=== PATIENT | male | born 1960 | race African-American/Black ===

== ENCOUNTER 2020-11-29 08:17 | Inpatient (IN) | payer SELFPAY ==
[2020-11-29] MEDS ORDERED: Lorazepam 2 MG/ML VIAL ONE (08:48)
[2020-11-29] MEDS ORDERED: Octreotide Acetate 50 MCG/ML AMP ONE (08:57)
[2020-11-29 09:10] LABS: #Basophils 0.1 thou/uL (0.0-0.2); #Lymphocytes 2.1 thou/uL (1.20-3.40); #Monocytes 0.5 thou/uL (0.11-0.59); #Neutrophils 5.1 thou/uL (1.40-6.50); %Basophils 0.7 % (0.0-1.0); %Eosinophils 0.2 % (0.0-10.0); %Lymphocytes 26.7 % (21.0-51.0); %Monocytes 6.6 % (0.0-10.0); %Neutrophils 65.8 % (42.0-75.0); Hemoglobin 10.3 g/dL (14.0-18.0); Mean Corpuscular HGB CONC 33.4 g/dL (32.0-36.0); Mean Corpuscular Hemoglobin 33.2 pg (27.0-31.0); Mean Corpuscular Volume 99.4 fL (78.0-98.0); Mean Platelet Volume 7.5 fL (7.4-10.4); Platelet Count 176 thou/uL (130-400); RBC Distribution Width 12.8 % (11.5-14.5); Red Blood Cell (RBC) Count 3.11 mill/uL (4.70-6.10); White Blood Cell (WBC) Count 7.7 thou/uL (4.8-10.8)
[2020-11-29] MEDS ORDERED: Octreotide Acetate 1,250 MCG in Sodium Chloride 0.9% 250 ML 250 ML IVPB SCH (09:15)
[2020-11-29 09:18] LABS: INR-International Normal Ratio 1.3
[2020-11-29 09:31] LABS: ALT (SGPT) 27 U/L (8-55); AST (SGOT) 85 U/L (5-34); Albumin 2.8 g/dL (3.5-5.0); Alkaline Phosphatase 90 U/L (40-110); Anion Gap 22 mmol/L (10-20); BUN (Urea Nitrogen) 5 mg/dL (8.4-25.7); Bilirubin, Total 0.5 mg/dL (0.2-1.2); Calc. Creatinine Clearance 0 mL/min (70-130); Calcium 7.9 mg/dL (7.8-10.44); Carbon Dioxide 12 mmol/L (22-29); Chloride 106 mmol/L (98-107); Globulin 3.1 g/dL (2.4-3.5); Glucose 196 mg/dL (70-105); Potassium 3.9 mmol/L (3.5-5.1); Protein, Total 5.9 g/dL (6.0-8.3); Sodium 136 mmol/L (136-145)
[2020-11-29] MEDS ORDERED: Pantoprazole 40 MG VIAL ONE (09:32)
[2020-11-29] MEDS ORDERED: Pantoprazole 80 MG, Admixture Fee 1 EACH in Sodium Chloride 0.9% 100 ML IVPB SCH (10:00)
[2020-11-29] MEDS ORDERED: Iopamidol-370 76% 500 ML 1 ML ONE (11:40)
[2020-11-29 11:58] LABS: Acetaminophen Less than 6.0 mcg/mL (10.0-30.0); Alcohol Less than 10 mg/dL (Less than 10); Salicylate Less than 8.0 mg/dL (15.0-30.0)
[2020-11-29] MEDS ORDERED: PROPOFOL 200 MG/20 ML VIAL ONE (12:16)
[2020-11-29] MEDS ORDERED: Succinylcholine 200 MG/10 ml SYRINGE FS ONE (12:16)
[2020-11-29] MEDS ORDERED: Ondansetron PF 4 MG/2 ML Vial ONE (12:16)
[2020-11-29] MEDS ORDERED: Dexamethasone 20 MG/5 ML VIAL ONE (12:16)
[2020-11-29] MEDS ORDERED: Lidocaine 1% PF 5 ML VIAL ONE (12:16)
[2020-11-29 12:17] LABS: SARS-CoV-2 NAA Rapid Test Not Detected (NotDetected)
[2020-11-29] MEDS ORDERED: EPINEPHrine 1 MG/ML AMP ONE (12:58)
[2020-11-29] MEDS ORDERED: Racepinephrine 2.25% 0.5 ML NEB ONE (12:58)
[2020-11-29] MEDS ORDERED: Sodium Chloride For Inhalation 0.9% 3 ML NEB ONE (12:59)
[2020-11-29] MEDS ORDERED: Promethazine HCl 25 MG/ML VIAL IM PRN (13:07)
[2020-11-29] MEDS ORDERED: Ondansetron HCl/PF 4 MG/2 ML Vial IVP PRN (13:07)
[2020-11-29] MEDS ORDERED: Promethazine HCl 25 MG/ML VIAL IVPB PRN (13:07)
[2020-11-29 14:59] LABS: Hemoglobin 9.5 g/dL (14.0-18.0)
[2020-11-29 15:31] LABS: ALT (SGPT) 27 U/L (8-55); AST (SGOT) 69 U/L (5-34); Albumin 2.8 g/dL (3.5-5.0); Alkaline Phosphatase 92 U/L (40-110); Anion Gap 17 mmol/L (10-20); BUN (Urea Nitrogen) 5 mg/dL (8.4-25.7); Bilirubin, Total 0.7 mg/dL (0.2-1.2); Calc. Creatinine Clearance 0 mL/min (70-130); Calcium 7.9 mg/dL (7.8-10.44); Carbon Dioxide 18 mmol/L (22-29); Chloride 102 mmol/L (98-107); Globulin 3.2 g/dL (2.4-3.5); Glucose 339 mg/dL (70-105); Potassium 4.6 mmol/L (3.5-5.1); Sodium 132 mmol/L (136-145)
[2020-11-29 15:45] LABS: Lactic Acid 5.4 mmol/L (0.5-2.2)
[2020-11-29 16:05] VITALS: BMI 21.2
[2020-11-29] MEDS ORDERED: GoLYTELY 4,000 ml Bottle PO SCH (17:00)
[2020-11-29] MEDS: Sodium Chloride 0.9% 1,000 ML IV SCH (17:36)
[2020-11-29] MEDS: Multivitamins, Adult 10 ML, Folic Acid 1 MG, Thiamine HCl 100 MG in Dextrose 5 %-0.45 %... IV SCH (17:36)
[2020-11-29] MEDS ORDERED: Diazepam 5 MG TAB PO PRN (19:02)
[2020-11-29] MEDS ORDERED: Thiamine HCl 200 MG/2 ML VIAL IM SCH (19:15)
[2020-11-29] MEDS ORDERED: Diazepam 5 MG TAB PO SCH (19:15)
[2020-11-29 19:59] LABS: Hemoglobin 8.7 g/dL (14.0-18.0)
[2020-11-29 20:19] LABS: Lactic Acid 4.5 mmol/L (0.5-2.2)
[2020-11-29] MEDS ORDERED: Sodium Chloride 0.9% 500 ML IV SCH (21:00)
[2020-11-29] MEDS: Pantoprazole 40 MG VIAL IVP SCH (21:34)
[2020-11-29 21:49] LABS: Amphetamine Not Detected (NotDetected); Barbiturates Screen Not Detected (NotDetected); Benzodiazepine Screen Detected (NotDetected); Cocaine Metabolite Screen Not Detected (NotDetected); Methadone Not Detected (NotDetected); Methamphetamine Not Detected (NotDetected); Opiate Screen Not Detected (NotDetected); Oxycodone Screen Not Detected (NotDetected); Phencyclidine (PCP) Not Detected (NotDetected); THC/Cannabinoid Screen Detected (NotDetected); Tricyclic Screen Not Detected (NotDetected)
[2020-11-30] MEDS: Sodium Chloride 0.9% 1,000 ML IV SCH ×2 (03:53→15:18)
[2020-11-30] MEDS ORDERED: Diazepam 5 MG TAB PO PRN (04:00)
[2020-11-30 07:16] LABS: #Lymphocytes 2.5 thou/uL (1.20-3.40); #Monocytes 1.1 thou/uL (0.11-0.59); #Neutrophils 9.5 thou/uL (1.40-6.50); %Basophils 0.1 % (0.0-1.0); %Eosinophils 0.1 % (0.0-10.0); %Lymphocytes 18.7 % (21.0-51.0); %Monocytes 8.5 % (0.0-10.0); %Neutrophils 72.5 % (42.0-75.0); Hemoglobin 8.4 g/dL (14.0-18.0); Magnesium 2.1 mg/dL (1.6-2.6); Mean Corpuscular HGB CONC 32.9 g/dL (32.0-36.0); Mean Corpuscular Hemoglobin 32.9 pg (27.0-31.0); Mean Corpuscular Volume 99.9 fL (78.0-98.0); Mean Platelet Volume 8.1 fL (7.4-10.4); Phosphorus 2.7 mg/dL (2.3-4.7); Platelet Count 162 thou/uL (130-400); RBC Distribution Width 12.9 % (11.5-14.5); Red Blood Cell (RBC) Count 2.55 mill/uL (4.70-6.10); White Blood Cell (WBC) Count 13.1 thou/uL (4.8-10.8)
[2020-11-30] MEDS: Multivitamin W/ Minerals 1 TAB PO SCH (09:01)
[2020-11-30] MEDS: Magnesium Oxide 400 MG TAB PO SCH (09:01)
[2020-11-30] MEDS: Pantoprazole 40 MG VIAL IVP SCH ×2 (09:01→21:27)
[2020-11-30] MEDS: Thiamine 100 MG TAB PO SCH (09:01)
[2020-11-30] MEDS: Folic Acid 1 MG TAB PO SCH (09:01)
[2020-11-30] MEDS ORDERED: PROPOFOL 200 MG/20 ML VIAL ONE (12:09)
[2020-11-30] MEDS: Nicotine 14 MG PATCH TD SCH (15:17)
[2020-11-30] MEDS: Multivitamins, Adult 10 ML, Folic Acid 1 MG, Thiamine HCl 100 MG in Dextrose 5 %-0.45 %... IV SCH (15:17)
[2020-11-30] MEDS: Lorazepam 2 MG/ML VIAL SLOW IVP SCH ×2 (17:18→21:27)
[2020-11-30] MEDS ORDERED: Sodium Chloride 0.9% 500 ML IV SCH (18:45)
[2020-11-30 18:58] LABS: #Lymphocytes 0.4 thou/uL (1.20-3.40); #Monocytes 0.1 thou/uL (0.11-0.59); #Neutrophils 2.8 thou/uL (1.40-6.50); %Eosinophils 0.2 % (0.0-10.0); %Lymphocytes 11.8 % (21.0-51.0); %Monocytes 3.8 % (0.0-10.0); %Neutrophils 84.2 % (42.0-75.0); Hemoglobin 7.3 g/dL (14.0-18.0); Mean Corpuscular HGB CONC 33.5 g/dL (32.0-36.0); Mean Corpuscular Hemoglobin 33.4 pg (27.0-31.0); Mean Corpuscular Volume 99.9 fL (78.0-98.0); Mean Platelet Volume 8.1 fL (7.4-10.4); Platelet Count 135 thou/uL (130-400); RBC Distribution Width 12.9 % (11.5-14.5); Red Blood Cell (RBC) Count 2.17 mill/uL (4.70-6.10); White Blood Cell (WBC) Count 3.3 thou/uL (4.8-10.8)
[2020-11-30 19:30] LABS: ALT (SGPT) 22 U/L (8-55); AST (SGOT) 94 U/L (5-34); Albumin 2.2 g/dL (3.5-5.0); Alkaline Phosphatase 62 U/L (40-110); Anion Gap 12 mmol/L (10-20); BUN (Urea Nitrogen) 4 mg/dL (8.4-25.7); Bilirubin, Total 0.5 mg/dL (0.2-1.2); Calc. Creatinine Clearance 99 mL/min (70-130); Carbon Dioxide 23 mmol/L (22-29); Chloride 105 mmol/L (98-107); Globulin 2.3 g/dL (2.4-3.5); Glucose 89 mg/dL (70-105); Magnesium 1.7 mg/dL (1.6-2.6); Potassium 3.1 mmol/L (3.5-5.1); Protein, Total 4.5 g/dL (6.0-8.3); Sodium 137 mmol/L (136-145)
[2020-11-30] MEDS: chlordiazePOXIDE HCl 5 MG CAP PO SCH (21:27)
[2020-11-30] MEDS: Metoprolol Tartrate 25 MG TAB PO SCH (23:17)
[2020-11-30] MEDS ORDERED: POTASSIUM CHLORIDE IVPB SCH (23:30)
[2020-11-30] MEDS ORDERED: Potassium Chloride 20 MEQ TAB PO SCH (23:30)
[2020-11-30] MEDS ORDERED: Metoprolol Tartrate 5 MG/5 ML VIAL IVP SCH (23:30)
[2020-11-30] MEDS ORDERED: Magnesium 2 GM/50 ML 2 GM in Premix Bag 1 BAG IVPB SCH (23:30)
[2020-12-01 02:12] LABS: Hemoglobin 8.4 g/dL (14.0-18.0); Mean Corpuscular HGB CONC 33.2 g/dL (32.0-36.0); Mean Corpuscular Hemoglobin 32.3 pg (27.0-31.0); Mean Corpuscular Volume 97.3 fL (78.0-98.0); Mean Platelet Volume 7.9 fL (7.4-10.4); Platelet Count 123 thou/uL (130-400); Red Blood Cell (RBC) Count 2.59 mill/uL (4.70-6.10); White Blood Cell (WBC) Count 14.8 thou/uL (4.8-10.8)
[2020-12-01 02:25] LABS: Band 26 % (5-11); Hypochromia SLIGHT = 6-15 cells (100X) (0-5/hpf); Lymphocytes 4 % (21-51); MDiff Complete? YES; Metamyelocyte 1 % (0-0); Monocytes 8 % (0-10); Neutrophil 61 % (42-75); Nucleated RBC 1 % (0); Platelet Morphology Comment Appears Decreased
[2020-12-01 02:50] LABS: ALT (SGPT) 29 U/L (8-55); AST (SGOT) 124 U/L (5-34); Albumin 2.2 g/dL (3.5-5.0); Alkaline Phosphatase 56 U/L (40-110); Anion Gap 13 mmol/L (10-20); BUN (Urea Nitrogen) 4 mg/dL (8.4-25.7); Bilirubin, Total 1.1 mg/dL (0.2-1.2); Calc. Creatinine Clearance 107 mL/min (70-130); Calcium 7.3 mg/dL (7.8-10.44); Carbon Dioxide 22 mmol/L (22-29); Chloride 105 mmol/L (98-107); Globulin 2.5 g/dL (2.4-3.5); Glucose 112 mg/dL (70-105); Potassium 3.7 mmol/L (3.5-5.1); Protein, Total 4.7 g/dL (6.0-8.3); Sodium 136 mmol/L (136-145)
[2020-12-01] MEDS: Lorazepam 2 MG/ML VIAL SLOW IVP SCH ×4 (04:37→13:09)
[2020-12-01] MEDS: Sodium Chloride 0.9% 1,000 ML IV SCH ×2 (06:12→09:15)
[2020-12-01] MEDS: Magnesium Oxide 400 MG TAB PO SCH (09:15)
[2020-12-01] MEDS: chlordiazePOXIDE HCl 5 MG CAP PO SCH ×2 (09:15→15:47)
[2020-12-01] MEDS: Multivitamin W/ Minerals 1 TAB PO SCH (09:16)
[2020-12-01] MEDS: Folic Acid 1 MG TAB PO SCH (09:16)
[2020-12-01] MEDS: Metoprolol Tartrate 25 MG TAB PO SCH (09:16)
[2020-12-01] MEDS: Pantoprazole 40 MG VIAL IVP SCH (09:16)
[2020-12-01] MEDS: Thiamine 100 MG TAB PO SCH (09:21)
[2020-12-01 09:58] LABS: Hemoglobin 8.6 g/dL (14.0-18.0); Mean Corpuscular HGB CONC 33.6 g/dL (32.0-36.0); Mean Corpuscular Hemoglobin 32.8 pg (27.0-31.0); Mean Corpuscular Volume 97.4 fL (78.0-98.0); Mean Platelet Volume 8.1 fL (7.4-10.4); Platelet Count 137 thou/uL (130-400); RBC Distribution Width 14.2 % (11.5-14.5); Red Blood Cell (RBC) Count 2.61 mill/uL (4.70-6.10); White Blood Cell (WBC) Count 22.3 thou/uL (4.8-10.8)
[2020-12-01] MEDS: Multivitamins, Adult 10 ML, Folic Acid 1 MG, Thiamine HCl 100 MG in Dextrose 5 %-0.45 %... IV SCH (13:09)
[2020-12-01 15:45] VITALS: BP 133/52
[2020-12-01] MEDS: Nicotine 14 MG PATCH TD SCH (15:47)
[2020-12-01 16:26] VITALS: TEMP 97.1
== END 2020-12-01 15:25 | disposition left against medical advice (07) | DRG 378 ==
LOC: ERS 08:17 → ERHOLD 10:26 → 3SE 14:54 → IMCU/EMU 11-30 20:30
PROVIDERS: ADMIT Internal Medicine; ATTEND Student in an Organized Health Care Education/Training Program
PROC: 0DB28ZX Excision of Middle Esophagus, Via Natural or Artificial Opening Endoscopic, Diagnostic (ICD-10-PCS; principal; 2020-11-29)
PROC: 0DB18ZX Excision of Upper Esophagus, Via Natural or Artificial Opening Endoscopic, Diagnostic (ICD-10-PCS; 2020-11-29)
PROC: HZ2ZZZZ Detoxification Services for Substance Abuse Treatment (ICD-10-PCS; 2020-11-29)
PROC: 0DBN8ZX Excision of Sigmoid Colon, Via Natural or Artificial Opening Endoscopic, Diagnostic (ICD-10-PCS; 2020-11-30)
PROC: 0W3P8ZZ Control Bleeding in Gastrointestinal Tract, Via Natural or Artificial Opening Endoscopic (ICD-10-PCS; 2020-11-30)
PROC: 30233N1 Transfusion of Nonautologous Red Blood Cells into Peripheral Vein, Percutaneous Approach (ICD-10-PCS; 2020-11-30)
DX: K57.31 Diverticulosis of large intestine without perforation or abscess with bleeding (principal); D62 Acute posthemorrhagic anemia; I47.2 Ventricular tachycardia; K22.10 Ulcer of esophagus without bleeding; R56.9 Unspecified convulsions; K44.9 Diaphragmatic hernia without obstruction or gangrene; E86.0 Dehydration; F17.210 Nicotine dependence, cigarettes, uncomplicated; Z20.822 Contact with and (suspected) exposure to COVID-19; K63.5 Polyp of colon; K64.8 Other hemorrhoids; F10.10 Alcohol abuse, uncomplicated; Y90.0 Blood alcohol level of less than 20 mg/100 ml; D72.829 Elevated white blood cell count, unspecified; Z71.41 Alcohol abuse counseling and surveillance of alcoholic
CPT/HCPCS: 36415; 36430; 70450; 74177; 80053; 80306; 80307; 82010; 83605; 83735; 84100; 84484; 85025; 85610; 85730; 86850; 86900; 86901; 88305; 88312; 88342; 93005; 93010; 95816; 95819; 95957; C9113; J0171; J1100; J2060; J2354; J2405; J2704; J3411; J3475; J3480; J3490; J7030; J7042; J7050; J7620; P9016; Q9967; U0002

== ENCOUNTER 2020-12-01 22:42 | Inpatient (IN) | payer SELFPAY ==
[2020-12-01] MEDS ORDERED: Pantoprazole 40 MG VIAL ONE (23:40)
[2020-12-01 23:46] LABS: INR-International Normal Ratio 1.1; Prothrombin Time 14.6 sec (12.0-14.7)
[2020-12-02] MEDS ORDERED: cefTRIAXone\\ROCEPHIN 2 GM VIAL ONE (00:01)
[2020-12-02] MEDS ORDERED: Azithromycin 500 MG VIAL ONE (00:01)
[2020-12-02 00:03] LABS: Hemoglobin 8.7 g/dL (14.0-18.0); Mean Corpuscular HGB CONC 32.1 g/dL (32.0-36.0); Mean Corpuscular Hemoglobin 31.7 pg (27.0-31.0); Mean Platelet Volume 8.8 fL (7.4-10.4); Platelet Count 175 thou/uL (130-400); RBC Distribution Width 14.8 % (11.5-14.5); Red Blood Cell (RBC) Count 2.73 mill/uL (4.70-6.10); White Blood Cell (WBC) Count 23.5 thou/uL (4.8-10.8)
[2020-12-02 00:11] LABS: ALT (SGPT) 43 U/L (8-55); AST (SGOT) 133 U/L (5-34); Albumin 2.8 g/dL (3.5-5.0); Alkaline Phosphatase 79 U/L (40-110); BUN (Urea Nitrogen) 10 mg/dL (8.4-25.7); Calc. Creatinine Clearance 0 mL/min (70-130); Calcium 8.4 mg/dL (7.8-10.44); Carbon Dioxide 14 mmol/L (22-29); Chloride 107 mmol/L (98-107); Globulin 3.1 g/dL (2.4-3.5); Glucose 89 mg/dL (70-105); Potassium 4.2 mmol/L (3.5-5.1); Protein, Total 5.9 g/dL (6.0-8.3); Sodium 139 mmol/L (136-145)
[2020-12-02 00:16] LABS: Anion Gap 22 mmol/L (10-20)
[2020-12-02 00:17] LABS: Band 33 % (5-11); CKMB 2.5 ng/mL (0-6.6); Lymphocytes 4 % (21-51); MDiff Complete? YES; Monocytes 2 % (0-10); Neutrophil 60 % (42-75); Nucleated RBC 1 % (0)
[2020-12-02 00:44] LABS: Bilirubin Negative (Negative); Blood, Urine Negative (Negative); Clarity Turbid (Clear); Glucose, Urine (Dipstick) Normal (Negative); Ketone, Urine 10 mg/dL (Negative); Leukocyte Negative Leu/uL (Negative); Nitrite Negative (Negative); Protein, Urine (Dipstick) 20 mg/dL (Neg-Trace); Specific Gravity, Urine 1.019 (1.002-1.036); pH, Urine 5.5 (5.0-9.0)
[2020-12-02] MEDS ORDERED: Vancomycin 1 GM/200 ML BAG ONE (01:28)
[2020-12-02 01:33] LABS: Actual Bicarbonate (HCO3a) 15.2 mEq/L (22-28); Base Excess (BEa) -8.7 mEq/L (-2.0 to +3.0); CO2 Tension 25.4 mmHg (35.0-45.0); Carboxyhemoglobin (COHb) 0.3 gm% (0.0-3.0); Hemoglobin (Hb) 7.2 g/dL (14.0-18.0); O2 Tension (PaO2), arterial 65.6 mmHg (80.0-100.0)
[2020-12-02 01:34] LABS: Analyzer IN Cardio ER; Calcium, Ionized (arterial) 1.05 mmol/L (1.12-1.30); Potassium - ABG Lab 3.65 mmol/L (3.70-5.30); Puncture Site RRA
[2020-12-02] MEDS ORDERED: Ondansetron PF 4 MG/2 ML Vial IVP PRN (01:43)
[2020-12-02] MEDS ORDERED: Acetaminophen 325 MG TAB PO PRN (01:43)
[2020-12-02] MEDS ORDERED: Pantoprazole 80 MG, Admixture Fee 1 EACH in Sodium Chloride 0.9% 100 ML IVPB SCH (02:30)
[2020-12-02 02:56] LABS: Albumin 2.5 g/dL (3.5-5.0)
[2020-12-02 02:57] LABS: Chloride 110 mmol/L (98-107); Potassium 4.1 mmol/L (3.5-5.1); Sodium 136 mmol/L (136-145)
[2020-12-02 02:58] LABS: Calcium 7.3 mg/dL (7.8-10.44)
[2020-12-02 02:59] LABS: Globulin 2.6 g/dL (2.4-3.5); Glucose 113 mg/dL (70-105); Lactic Acid 3.9 mmol/L (0.5-2.2); Protein, Total 5.1 g/dL (6.0-8.3)
[2020-12-02 03:00] LABS: Anion Gap 14 mmol/L (10-20); Carbon Dioxide 16 mmol/L (22-29)
[2020-12-02 03:01] LABS: Alkaline Phosphatase 66 U/L (40-110); Bilirubin, Total 0.7 mg/dL (0.2-1.2)
[2020-12-02 03:02] LABS: Calc. Creatinine Clearance 0 mL/min (70-130)
[2020-12-02 03:03] LABS: BUN (Urea Nitrogen) 8 mg/dL (8.4-25.7)
[2020-12-02 03:04] LABS: AST (SGOT) 112 U/L (5-34); Troponin I 0.032 ng/mL (< 0.028)
[2020-12-02 03:05] LABS: ALT (SGPT) 37 U/L (8-55)
[2020-12-02 03:26] LABS: Hemoglobin 7.7 g/dL (14.0-18.0); Mean Corpuscular HGB CONC 32.3 g/dL (32.0-36.0); Mean Corpuscular Hemoglobin 31.8 pg (27.0-31.0); Mean Corpuscular Volume 98.3 fL (78.0-98.0); Mean Platelet Volume 8.2 fL (7.4-10.4); Platelet Count 175 thou/uL (130-400); RBC Distribution Width 14.7 % (11.5-14.5); Red Blood Cell (RBC) Count 2.43 mill/uL (4.70-6.10); White Blood Cell (WBC) Count 21.5 thou/uL (4.8-10.8)
[2020-12-02 03:27] LABS: Band 34 % (5-11); Lymphocytes 7 % (21-51); MDiff Complete? YES; Monocytes 1 % (0-10); Neutrophil 58 % (42-75); Nucleated RBC 2 % (0)
[2020-12-02] MEDS: Lorazepam 2 MG/ML VIAL SLOW IVP PRN ×3 (03:35→22:24)
[2020-12-02] MEDS: Thiamine HCl 200 MG/2 ML VIAL SLOW IVP SCH (05:01)
[2020-12-02 05:12] LABS: Hemoglobin 8.9 g/dL (14.0-18.0); Platelet Count 154 thou/uL (130-400)
[2020-12-02 05:54] LABS: SARS-CoV-2 NAA Rapid Test Not Detected (NotDetected)
[2020-12-02] MEDS: Sodium Chloride 0.9% 1,000 ML IV SCH ×2 (05:58→21:21)
[2020-12-02 06:09] LABS: Troponin I 0.055 ng/mL (< 0.028)
[2020-12-02] MEDS ORDERED: Metoprolol Tartrate 5 MG/5 ML VIAL ONE (06:38)
[2020-12-02] MEDS ORDERED: Metoprolol Tartrate 5 MG/5 ML VIAL IVP SCH (06:45)
[2020-12-02] MEDS: levETIRAcetam in NS 500 MG in Premix Bag 1 BAG IVPB SCH ×2 (08:24→20:25)
[2020-12-02] MEDS: Metoprolol Tartrate 25 MG TAB PO SCH ×2 (08:27→20:24)
[2020-12-02] MEDS ORDERED: Pantoprazole 40 MG VIAL IVP SCH (09:00)
[2020-12-02 11:57] LABS: Lactic Acid 2.3 mmol/L (0.5-2.2)
[2020-12-02 12:12] LABS: Hemoglobin 8.5 g/dL (14.0-18.0)
[2020-12-02] MEDS: Cefepime 1 GM in Sodium Chloride 0.9% 100 ML IVPB SCH (12:46)
[2020-12-02] MEDS: Vancomycin 1 GM in Premix Bag 1 BAG IVPB SCH (14:49)
[2020-12-02 17:30] LABS: Hemoglobin 8.8 g/dL (14.0-18.0)
[2020-12-02] MEDS: AMOXicillin 250 MG CAP PO SCH (20:24)
[2020-12-02] MEDS: Clarithromycin 500 MG TAB PO SCH (20:25)
[2020-12-02] MEDS: Pantoprazole 40 MG VIAL IVP SCH (20:25)
[2020-12-02 22:57] LABS: Hemoglobin 9.4 g/dL (14.0-18.0)
[2020-12-03] MEDS: Clarithromycin 500 MG TAB PO SCH ×2 (00:13→08:19)
[2020-12-03] MEDS: Cefepime 1 GM in Sodium Chloride 0.9% 100 ML IVPB SCH ×2 (00:14→13:11)
[2020-12-03] MEDS: Metoprolol Tartrate 25 MG TAB PO SCH ×2 (00:15→08:22)
[2020-12-03] MEDS: AMOXicillin 250 MG CAP PO SCH ×2 (00:21→08:20)
[2020-12-03] MEDS: Vancomycin 1 GM in Premix Bag 1 BAG IVPB SCH ×2 (02:35→13:13)
[2020-12-03] MEDS: Thiamine HCl 200 MG/2 ML VIAL SLOW IVP SCH (05:07)
[2020-12-03 05:59] LABS: ALT (SGPT) 32 U/L (8-55); AST (SGOT) 97 U/L (5-34); Alkaline Phosphatase 59 U/L (40-110); Anion Gap 14 mmol/L (10-20); BUN (Urea Nitrogen) 9 mg/dL (8.4-25.7); Bilirubin, Total 0.5 mg/dL (0.2-1.2); Calc. Creatinine Clearance 117 mL/min (70-130); Calcium 7.6 mg/dL (7.8-10.44); Carbon Dioxide 18 mmol/L (22-29); Chloride 110 mmol/L (98-107); Globulin 2.4 g/dL (2.4-3.5); Glucose 159 mg/dL (70-105); Potassium 3.7 mmol/L (3.5-5.1); Protein, Total 4.4 g/dL (6.0-8.3); Sodium 138 mmol/L (136-145)
[2020-12-03 06:08] LABS: Band 25 % (5-11); Hemoglobin 10.5 g/dL (14.0-18.0); Lymphocytes 6 % (21-51); MDiff Complete? YES; Mean Corpuscular Hemoglobin 32.2 pg (27.0-31.0); Mean Corpuscular Volume 97.7 fL (78.0-98.0); Mean Platelet Volume 8.8 fL (7.4-10.4); Monocytes 7 % (0-10); Neutrophil 62 % (42-75); Nucleated RBC 1 % (0); Platelet Count 153 thou/uL (130-400); Polychromasia SLIGHT = 2-3 cells (100X) (0-2/hpf); RBC Distribution Width 15.4 % (11.5-14.5); Red Blood Cell (RBC) Count 3.26 mill/uL (4.70-6.10); White Blood Cell (WBC) Count 18.5 thou/uL (4.8-10.8)
[2020-12-03] MEDS: levETIRAcetam in NS 500 MG in Premix Bag 1 BAG IVPB SCH ×2 (08:21→20:39)
[2020-12-03] MEDS: Pantoprazole 40 MG VIAL IVP SCH ×2 (08:21→20:39)
[2020-12-03] MEDS: Haloperidol Lactate 5 MG/ML VIAL SLOW IVP PRN ×2 (13:11→19:44)
[2020-12-03 13:54] LABS: Vancomycin, Trough 11.8 ug/mL
[2020-12-03] MEDS: Sodium Chloride 0.9% 1,000 ML IV SCH (17:53)
[2020-12-03] MEDS ORDERED: Norepinephrine 8 MG/0.9% NS 250 ML ONE (19:05)
[2020-12-03] MEDS ORDERED: Norepinephrine 8 MG/0.9% NS 250 ML IVPB SCH (19:15)
[2020-12-03] MEDS: Albumin 25% 25 GM/100 ML BOT IVPB SCH (19:26)
[2020-12-04] MEDS: Cefepime 1 GM in Sodium Chloride 0.9% 100 ML IVPB SCH ×3 (00:02→23:06)
[2020-12-04] MEDS: Vancomycin 1 GM in Premix Bag 1 BAG IVPB SCH ×2 (01:55→12:17)
[2020-12-04] MEDS: Albumin 25% 25 GM/100 ML BOT IVPB SCH ×4 (01:55→23:02)
[2020-12-04] MEDS: Thiamine HCl 200 MG/2 ML VIAL SLOW IVP SCH (04:10)
[2020-12-04 05:06] LABS: ALT (SGPT) 41 U/L (8-55); AST (SGOT) 116 U/L (5-34); Albumin 2.8 g/dL (3.5-5.0); Alkaline Phosphatase 85 U/L (40-110); Anion Gap 13 mmol/L (10-20); BUN (Urea Nitrogen) 8 mg/dL (8.4-25.7); Bilirubin, Total 0.6 mg/dL (0.2-1.2); Calc. Creatinine Clearance 116 mL/min (70-130); Calcium 7.7 mg/dL (7.8-10.44); Carbon Dioxide 18 mmol/L (22-29); Chloride 110 mmol/L (98-107); Globulin 1.9 g/dL (2.4-3.5); Glucose 80 mg/dL (70-105); Potassium 3.2 mmol/L (3.5-5.1); Protein, Total 4.7 g/dL (6.0-8.3); Sodium 138 mmol/L (136-145)
[2020-12-04 05:50] LABS: Band 14 % (5-11); Hemoglobin 9.5 g/dL (14.0-18.0); Lymphocytes 9 % (21-51); MDiff Complete? YES; Mean Corpuscular HGB CONC 32.2 g/dL (32.0-36.0); Mean Corpuscular Hemoglobin 31.7 pg (27.0-31.0); Mean Corpuscular Volume 98.6 fL (78.0-98.0); Mean Platelet Volume 8.4 fL (7.4-10.4); Monocytes 4 % (0-10); Neutrophil 73 % (42-75); Nucleated RBC 7 % (0); Platelet Count 169 thou/uL (130-400); RBC Distribution Width 15.3 % (11.5-14.5); Red Blood Cell (RBC) Count 2.98 mill/uL (4.70-6.10); White Blood Cell (WBC) Count 16.9 thou/uL (4.8-10.8)
[2020-12-04] MEDS: levETIRAcetam in NS 500 MG in Premix Bag 1 BAG IVPB SCH ×2 (07:53→21:15)
[2020-12-04] MEDS: Pantoprazole 40 MG VIAL IVP SCH ×2 (07:54→21:15)
[2020-12-04] MEDS ORDERED: Electrolyte Replacement Protocol 1 EACH FS PRN (08:23)
[2020-12-04 10:24] LABS: Magnesium 2.1 mg/dL (1.6-2.6); Phosphorus 3.2 mg/dL (2.3-4.7)
[2020-12-04] MEDS ORDERED: Potassium Phosphate 30 MMOL in Sodium Chloride 0.9% 250 ML 250 ML IVPB SCH (11:30)
[2020-12-04] MEDS: Sodium Chloride 0.9% 1,000 ML IV SCH (12:19)
[2020-12-04] MEDS: Lorazepam 2 MG/ML VIAL SLOW IVP PRN ×2 (12:28→19:23)
[2020-12-04] MEDS ORDERED: Metoprolol Tartrate 5 MG/5 ML VIAL IVP SCH (13:15)
[2020-12-04] MEDS: Haloperidol Lactate 5 MG/ML VIAL SLOW IVP PRN (16:57)
[2020-12-04] MEDS ORDERED: Propofol 1,000 MG/100 ML VIAL IV ONE (17:32)
[2020-12-04] MEDS: Propofol 1,000 MG/100 ML VIAL IV PRN (17:50)
[2020-12-04] MEDS ORDERED: Fentanyl CADD 100 ML ONE ×2 (18:03→18:05)
[2020-12-04] MEDS ORDERED: Fentanyl BOLUS 250 ML IVPB PRN (18:15)
[2020-12-04] MEDS ORDERED: DISCONTINUE PREVIOUS NARCOTIC PAIN MEDICATIONS AND BENZODIAZEPINES FS SCH (18:15)
[2020-12-04] MEDS: Fentanyl CADD 100 ML IV SCH (18:15)
[2020-12-04] MEDS ORDERED: Propofol BOLUS 1,000 MG/100 ML VIAL IV PRN (18:15)
[2020-12-04] MEDS ORDERED: Morphine 2 MG/ML VIAL SLOW IVP PRN (18:15)
[2020-12-04 19:50] LABS: Actual Bicarbonate (HCO3a) 21.5 mEq/L (22-28); Base Excess (BEa) -2.7 mEq/L (-2.0 to +3.0); CO2 Tension 34.4 mmHg (35.0-45.0); Calcium, Ionized (arterial) 1.09 mmol/L (1.12-1.30); Carboxyhemoglobin (COHb) 0.3 gm% (0.0-3.0); Hemoglobin (Hb) 7.8 g/dL (14.0-18.0); Potassium - ABG Lab 2.89 mmol/L (3.70-5.30); pH, Arterial 7.41 (7.35-7.45)
[2020-12-04 20:00] LABS: O2 Tension (PaO2), arterial 21.7 mmHg (80.0-100.0)
[2020-12-04 20:01] LABS: Puncture Site LRA
[2020-12-04 20:14] LABS: Actual Bicarbonate (HCO3a) 17.7 mEq/L (22-28); Base Excess (BEa) -5.7 mEq/L (-2.0 to +3.0); CO2 Tension 27.1 mmHg (35.0-45.0); Calcium, Ionized (arterial) 1.11 mmol/L (1.12-1.30); Carboxyhemoglobin (COHb) 0.4 gm% (0.0-3.0); Hemoglobin (Hb) 7.6 g/dL (14.0-18.0); O2 Tension (PaO2), arterial 96.6 mmHg (80.0-100.0); Potassium - ABG Lab 2.52 mmol/L (3.70-5.30); pH, Arterial 7.43 (7.35-7.45)
[2020-12-04 20:17] LABS: ALV-art Gradient 226.025 mmHg (0-20); Puncture Site LBA
[2020-12-04 20:48] LABS: Hemoglobin 7.9 g/dL (14.0-18.0); Platelet Count 183 thou/uL (130-400)
[2020-12-04] MEDS ORDERED: Rocuronium Bromide 50 MG/5 ML VIAL ONE (20:51)
[2020-12-04] MEDS ORDERED: Midazolam HCl 2 mg/2 ml Vial SLOW IVP SCH (21:00)
[2020-12-04] MEDS ORDERED: Rocuronium Bromide 50 MG/5 ML VIAL IVP SCH (21:00)
[2020-12-04] MEDS: Midazolam HCl 5 mg/5 ml Vial ONE (23:06)
[2020-12-05 01:03] LABS: Hemoglobin 7.5 g/dL (14.0-18.0); Platelet Count 171 thou/uL (130-400)
[2020-12-05] MEDS: Propofol 1,000 MG/100 ML VIAL IV PRN ×3 (01:25→19:15)
[2020-12-05] MEDS: Vancomycin 1 GM in Premix Bag 1 BAG IVPB SCH ×2 (01:25→14:16)
[2020-12-05] MEDS: Midazolam HCl 5 mg/5 ml Vial ONE (03:44)
[2020-12-05] MEDS: Thiamine HCl 200 MG/2 ML VIAL SLOW IVP SCH (04:09)
[2020-12-05 04:47] LABS: Anion Gap 11 mmol/L (10-20); BUN (Urea Nitrogen) 4 mg/dL (8.4-25.7); Calc. Creatinine Clearance 105 mL/min (70-130); Calcium 7.3 mg/dL (7.8-10.44); Carbon Dioxide 23 mmol/L (22-29); Chloride 111 mmol/L (98-107); Glucose 97 mg/dL (70-105); Sodium 142 mmol/L (136-145)
[2020-12-05 04:54] LABS: Potassium 2.6 mmol/L (3.5-5.1)
[2020-12-05 04:58] LABS: Band 13 % (5-11); Hemoglobin 8.5 g/dL (14.0-18.0); Lymphocytes 12 % (21-51); MDiff Complete? YES; Mean Corpuscular HGB CONC 30.3 g/dL (32.0-36.0); Mean Corpuscular Hemoglobin 28.9 pg (27.0-31.0); Mean Corpuscular Volume 95.3 fL (78.0-98.0); Mean Platelet Volume 8.2 fL (7.4-10.4); Monocytes 9 % (0-10); Neutrophil 66 % (42-75); Nucleated RBC 12 % (0); Platelet Count 157 thou/uL (130-400); RBC Distribution Width 15.4 % (11.5-14.5); Red Blood Cell (RBC) Count 2.93 mill/uL (4.70-6.10); White Blood Cell (WBC) Count 12.1 thou/uL (4.8-10.8)
[2020-12-05] MEDS: Potassium Chloride 40 MEQ in Sodium Chloride 0.9% 250 ML 250 ML IVPB SCH ×2 (05:31→09:30)
[2020-12-05 06:38] LABS: Hemoglobin 9.7 g/dL (14.0-18.0)
[2020-12-05] MEDS: levETIRAcetam in NS 500 MG in Premix Bag 1 BAG IVPB SCH ×2 (08:57→21:40)
[2020-12-05] MEDS: Pantoprazole 40 MG VIAL IVP SCH ×2 (08:57→21:40)
[2020-12-05] MEDS: Cefepime 1 GM in Sodium Chloride 0.9% 100 ML IVPB SCH (11:14)
[2020-12-05] MEDS: Sodium Chloride 0.9% 1,000 ML IV SCH (13:43)
[2020-12-05] MEDS: Lorazepam 2 MG/ML VIAL SLOW IVP PRN (21:38)
[2020-12-05] MEDS ORDERED: Fentanyl CADD 100 ML ONE (21:51)
[2020-12-05] MEDS: Fentanyl CADD 100 ML IV SCH (21:53)
[2020-12-06] MEDS: Cefepime 1 GM in Sodium Chloride 0.9% 100 ML IVPB SCH ×2 (00:02→13:32)
[2020-12-06] MEDS: VANCOMYCIN 1.25 GM/250 ML BAG 1.25 GM in Premix Bag 1 BAG IVPB SCH ×2 (01:34→14:32)
[2020-12-06] MEDS: Propofol 1,000 MG/100 ML VIAL IV PRN ×4 (01:34→18:10)
[2020-12-06 04:37] LABS: Anion Gap 12 mmol/L (10-20); BUN (Urea Nitrogen) Less than 4 mg/dL (8.4-25.7); Calc. Creatinine Clearance 126 mL/min (70-130); Calcium 7.4 mg/dL (7.8-10.44); Carbon Dioxide 24 mmol/L (22-29); Chloride 110 mmol/L (98-107); Glucose 86 mg/dL (70-105); Sodium 143 mmol/L (136-145)
[2020-12-06 04:42] LABS: Potassium 2.7 mmol/L (3.5-5.1)
[2020-12-06 05:58] LABS: Band 24 % (5-11); Eosinophils 3 % (0-10); Hemoglobin 7.3 g/dL (14.0-18.0); Lymphocytes 9 % (21-51); MDiff Complete? YES; Mean Corpuscular HGB CONC 32.9 g/dL (32.0-36.0); Mean Corpuscular Hemoglobin 31.5 pg (27.0-31.0); Mean Corpuscular Volume 95.8 fL (78.0-98.0); Mean Platelet Volume 8.1 fL (7.4-10.4); Monocytes 2 % (0-10); Neutrophil 62 % (42-75); Nucleated RBC 3 % (0); Platelet Count 160 thou/uL (130-400); Red Blood Cell (RBC) Count 2.32 mill/uL (4.70-6.10); White Blood Cell (WBC) Count 17.1 thou/uL (4.8-10.8)
[2020-12-06] MEDS: Thiamine HCl 200 MG/2 ML VIAL SLOW IVP SCH (06:18)
[2020-12-06] MEDS: Potassium Chloride 40 MEQ in Sodium Chloride 0.9% 250 ML 250 ML IVPB SCH ×2 (06:24→10:21)
[2020-12-06] MEDS: Sodium Chloride 0.9% 1,000 ML IV SCH (06:24)
[2020-12-06] MEDS: levETIRAcetam in NS 500 MG in Premix Bag 1 BAG IVPB SCH ×2 (07:52→21:43)
[2020-12-06] MEDS: Pantoprazole 40 MG VIAL IVP SCH ×2 (07:52→21:42)
[2020-12-06 17:22] LABS: Potassium 3.4 mmol/L (3.5-5.1)
[2020-12-06] MEDS: Lorazepam 2 MG/ML VIAL SLOW IVP PRN (18:09)
[2020-12-07] MEDS: Lorazepam 2 MG/ML VIAL SLOW IVP PRN (00:40)
[2020-12-07] MEDS: Cefepime 1 GM in Sodium Chloride 0.9% 100 ML IVPB SCH ×2 (00:40→11:29)
[2020-12-07] MEDS: Propofol 1,000 MG/100 ML VIAL IV PRN ×3 (02:12→16:25)
[2020-12-07] MEDS: VANCOMYCIN 1.25 GM/250 ML BAG 1.25 GM in Premix Bag 1 BAG IVPB SCH (02:12)
[2020-12-07] MEDS: Sodium Chloride 0.9% 1,000 ML IV SCH (05:20)
[2020-12-07] MEDS: Thiamine HCl 200 MG/2 ML VIAL SLOW IVP SCH (05:20)
[2020-12-07 05:28] LABS: Anion Gap 15 mmol/L (10-20); BUN (Urea Nitrogen) 4 mg/dL (8.4-25.7); Calc. Creatinine Clearance 122 mL/min (70-130); Calcium 7.6 mg/dL (7.8-10.44); Carbon Dioxide 21 mmol/L (22-29); Chloride 115 mmol/L (98-107); Glucose 84 mg/dL (70-105); Potassium 3.5 mmol/L (3.5-5.1); Sodium 147 mmol/L (136-145)
[2020-12-07] MEDS ORDERED: Potassium Chloride 40 MEQ in Sodium Chloride 0.9% 250 ML 250 ML IVPB SCH (05:45)
[2020-12-07 05:55] LABS: Band 17 % (5-11); Hemoglobin 6.7 g/dL (14.0-18.0); Lymphocytes 11 % (21-51); MDiff Complete? YES; Mean Corpuscular Hemoglobin 32.2 pg (27.0-31.0); Mean Corpuscular Volume 94.8 fL (78.0-98.0); Mean Platelet Volume 9.1 fL (7.4-10.4); Metamyelocyte 1 % (0-0); Monocytes 1 % (0-10); Neutrophil 70 % (42-75); Nucleated RBC 10 % (0); Platelet Count 146 thou/uL (130-400); Polychromasia SLIGHT = 2-3 cells (100X) (0-2/hpf); RBC Distribution Width 16.1 % (11.5-14.5); Red Blood Cell (RBC) Count 2.08 mill/uL (4.70-6.10); White Blood Cell (WBC) Count 18.7 thou/uL (4.8-10.8)
[2020-12-07] MEDS: levETIRAcetam in NS 500 MG in Premix Bag 1 BAG IVPB SCH ×2 (07:41→21:20)
[2020-12-07] MEDS: Pantoprazole 40 MG VIAL IVP SCH ×2 (07:42→21:20)
[2020-12-07] MEDS ORDERED: Fentanyl CADD 100 ML ONE (08:21)
[2020-12-07] MEDS: Fentanyl CADD 100 ML IV SCH (08:32)
[2020-12-07 08:49] LABS: Actual Bicarbonate (HCO3a) 21.4 mEq/L (22-28); Base Excess (BEa) -3.3 mEq/L (-2.0 to +3.0); Calcium, Ionized (arterial) 1.15 mmol/L (1.12-1.30); Carboxyhemoglobin (COHb) 0.3 gm% (0.0-3.0); Hemoglobin (Hb) 7.3 g/dL (14.0-18.0); Potassium - ABG Lab 3.26 mmol/L (3.70-5.30); pH, Arterial 7.38 (7.35-7.45)
[2020-12-07 08:54] LABS: Puncture Site LRA
[2020-12-07 12:38] LABS: Potassium 4.3 mmol/L (3.5-5.1)
[2020-12-08] MEDS: Sodium Chloride 0.9% 1,000 ML IV SCH (00:38)
[2020-12-08] MEDS: Propofol 1,000 MG/100 ML VIAL IV PRN ×4 (00:38→16:43)
[2020-12-08] MEDS: Cefepime 1 GM in Sodium Chloride 0.9% 100 ML IVPB SCH ×3 (00:39→23:59)
[2020-12-08] MEDS: Thiamine HCl 200 MG/2 ML VIAL SLOW IVP SCH (04:07)
[2020-12-08 07:35] LABS: Hemoglobin 9.6 g/dL (14.0-18.0); Mean Corpuscular HGB CONC 33.8 g/dL (32.0-36.0); Mean Corpuscular Hemoglobin 31.4 pg (27.0-31.0); Mean Corpuscular Volume 92.9 fL (78.0-98.0); Mean Platelet Volume 8.9 fL (7.4-10.4); Platelet Count 128 thou/uL (130-400); RBC Distribution Width 14.8 % (11.5-14.5); Red Blood Cell (RBC) Count 3.06 mill/uL (4.70-6.10); White Blood Cell (WBC) Count 21.9 thou/uL (4.8-10.8)
[2020-12-08 07:42] LABS: Anion Gap 8 mmol/L (10-20); BUN (Urea Nitrogen) 5 mg/dL (8.4-25.7); Calc. Creatinine Clearance 122 mL/min (70-130); Calcium 7.7 mg/dL (7.8-10.44); Carbon Dioxide 28 mmol/L (22-29); Chloride 114 mmol/L (98-107); Glucose 158 mg/dL (70-105); Potassium 3.2 mmol/L (3.5-5.1); Sodium 147 mmol/L (136-145)
[2020-12-08] MEDS: Pantoprazole 40 MG VIAL IVP SCH ×2 (07:54→20:51)
[2020-12-08] MEDS: levETIRAcetam in NS 500 MG in Premix Bag 1 BAG IVPB SCH ×2 (07:54→20:51)
[2020-12-08 08:06] LABS: Actual Bicarbonate (HCO3a) 25.3 mEq/L (22-28); Base Excess (BEa) 0.4 mEq/L (-2.0 to +3.0); CO2 Tension 41.7 mmHg (35.0-45.0); Calcium, Ionized (arterial) 1.14 mmol/L (1.12-1.30); Carboxyhemoglobin (COHb) 0.5 gm% (0.0-3.0); Hemoglobin (Hb) 12.1 g/dL (14.0-18.0)
[2020-12-08 08:20] LABS: ALV-art Gradient -35.925 mmHg (0-20); O2 Tension (PaO2), arterial 55.1 mmHg (80.0-100.0); Puncture Site LRA
[2020-12-08 08:43] LABS: Band 16 % (5-11); Eosinophils 2 % (0-10); Lymphocytes 7 % (21-51); MDiff Complete? YES; Monocytes 6 % (0-10); Neutrophil 69 % (42-75); Nucleated RBC 3 % (0); Platelet Morphology Comment Appears Decreased; Polychromasia MODERATE = 3-4 cells (100X) (0-2/hpf)
[2020-12-08] MEDS ORDERED: Potassium Chloride 40 MEQ in Sodium Chloride 0.9% 250 ML 250 ML IVPB SCH (09:00)
[2020-12-08] MEDS ORDERED: Potassium Chloride 20 MEQ in Premix Bag 1 BAG IVPB SCH (10:15)
[2020-12-08] MEDS ORDERED: Potassium Chloride 20 MEQ TAB PO SCH (10:15)
[2020-12-08] MEDS: metroNIDAZOLE 500 MG in Premix Bag 1 BAG IVPB SCH ×2 (10:57→20:50)
[2020-12-08] MEDS ORDERED: Magnesium 2 GM/50 ML 2 GM in Premix Bag 1 BAG IVPB SCH (11:15)
[2020-12-08] MEDS: Lorazepam 2 MG/ML VIAL SLOW IVP PRN ×2 (15:13→16:43)
[2020-12-08] MEDS ORDERED: Fentanyl CADD 100 ML ONE (19:40)
[2020-12-08] MEDS: Fentanyl CADD 100 ML IV SCH (19:45)
[2020-12-09] MEDS: Thiamine HCl 200 MG/2 ML VIAL SLOW IVP SCH (04:11)
[2020-12-09] MEDS: metroNIDAZOLE 500 MG in Premix Bag 1 BAG IVPB SCH ×3 (04:12→21:03)
[2020-12-09] MEDS: Propofol 1,000 MG/100 ML VIAL IV PRN (04:57)
[2020-12-09 06:26] LABS: Band 14 % (5-11); Hemoglobin 10.2 g/dL (14.0-18.0); Hypochromia SLIGHT = 6-15 cells (100X) (0-5/hpf); Lymphocytes 2 % (21-51); MDiff Complete? YES; Mean Corpuscular Hemoglobin 31.2 pg (27.0-31.0); Mean Corpuscular Volume 94.3 fL (78.0-98.0); Mean Platelet Volume 8.9 fL (7.4-10.4); Monocytes 3 % (0-10); Neutrophil 81 % (42-75); Nucleated RBC 1 % (0); Platelet Count 150 thou/uL (130-400); Platelet Morphology Comment Appears Adequate; RBC Distribution Width 14.9 % (11.5-14.5); Red Blood Cell (RBC) Count 3.26 mill/uL (4.70-6.10); Target Cells SLIGHT = 2-5 cells (100X) (0-1/hpf); White Blood Cell (WBC) Count 23.4 thou/uL (4.8-10.8)
[2020-12-09 06:41] LABS: ALT (SGPT) 50 U/L (8-55); AST (SGOT) 96 U/L (5-34); Albumin 1.9 g/dL (3.5-5.0); Alkaline Phosphatase 99 U/L (40-110); Anion Gap 10 mmol/L (10-20); BUN (Urea Nitrogen) 5 mg/dL (8.4-25.7); Bilirubin, Total 0.6 mg/dL (0.2-1.2); Calc. Creatinine Clearance 129 mL/min (70-130); Calcium 7.5 mg/dL (7.8-10.44); Carbon Dioxide 30 mmol/L (22-29); Chloride 112 mmol/L (98-107); Globulin 2.5 g/dL (2.4-3.5); Glucose 126 mg/dL (70-105); Magnesium 2.3 mg/dL (1.6-2.6); Protein, Total 4.4 g/dL (6.0-8.3); Sodium 149 mmol/L (136-145)
[2020-12-09 06:46] LABS: Potassium 2.9 mmol/L (3.5-5.1)
[2020-12-09 07:39] LABS: Actual Bicarbonate (HCO3a) 30.6 mEq/L (22-28); Base Excess (BEa) 5.5 mEq/L (-2.0 to +3.0); CO2 Tension 47.2 mmHg (35.0-45.0); Calcium, Ionized (arterial) 1.14 mmol/L (1.12-1.30); Carboxyhemoglobin (COHb) 0.3 gm% (0.0-3.0); Hemoglobin (Hb) 10.8 g/dL (14.0-18.0); O2 Tension (PaO2), arterial 71.4 mmHg (80.0-100.0); Potassium - ABG Lab 2.67 mmol/L (3.70-5.30); pH, Arterial 7.43 (7.35-7.45)
[2020-12-09 07:50] LABS: Puncture Site RRA
[2020-12-09] MEDS: Potassium Chloride 40 MEQ in Premix Bag 1 BAG IVPB SCH ×2 (09:20→14:07)
[2020-12-09] MEDS: levETIRAcetam in NS 500 MG in Premix Bag 1 BAG IVPB SCH ×2 (09:21→21:03)
[2020-12-09] MEDS: Pantoprazole 40 MG VIAL IVP SCH ×2 (09:22→21:04)
[2020-12-09] MEDS: Cefepime 1 GM in Sodium Chloride 0.9% 100 ML IVPB SCH (12:51)
[2020-12-09 21:00] LABS: Potassium 5.3 mmol/L (3.5-5.1)
[2020-12-10 00:53] LABS: SARS-CoV-2 PCR by NAA Not Detected (NotDetected)
[2020-12-10] MEDS: Cefepime 1 GM in Sodium Chloride 0.9% 100 ML IVPB SCH ×2 (00:55→12:27)
[2020-12-10] MEDS: metroNIDAZOLE 500 MG in Premix Bag 1 BAG IVPB SCH ×3 (05:41→21:12)
[2020-12-10] MEDS: Thiamine HCl 200 MG/2 ML VIAL SLOW IVP SCH (05:41)
[2020-12-10 06:52] LABS: Anion Gap 9 mmol/L (10-20); BUN (Urea Nitrogen) 6 mg/dL (8.4-25.7); Calc. Creatinine Clearance 119 mL/min (70-130); Calcium 7.6 mg/dL (7.8-10.44); Carbon Dioxide 30 mmol/L (22-29); Chloride 112 mmol/L (98-107); Glucose 127 mg/dL (70-105); Potassium 3.5 mmol/L (3.5-5.1); Sodium 147 mmol/L (136-145)
[2020-12-10] MEDS ORDERED: Potassium Chloride 40 MEQ in Sodium Chloride 0.9% 250 ML 250 ML IVPB SCH (07:15)
[2020-12-10 07:27] LABS: Hemoglobin 10.3 g/dL (14.0-18.0); Mean Corpuscular HGB CONC 33.1 g/dL (32.0-36.0); Mean Corpuscular Hemoglobin 31.6 pg (27.0-31.0); Mean Corpuscular Volume 95.5 fL (78.0-98.0); Red Blood Cell (RBC) Count 3.27 mill/uL (4.70-6.10)
[2020-12-10 07:40] LABS: Actual Bicarbonate (HCO3a) 29.9 mEq/L (22-28); Base Excess (BEa) 5.4 mEq/L (-2.0 to +3.0); CO2 Tension 43.6 mmHg (35.0-45.0); Calcium, Ionized (arterial) 1.11 mmol/L (1.12-1.30); Carboxyhemoglobin (COHb) 0.3 gm% (0.0-3.0); O2 Tension (PaO2), arterial 92.1 mmHg (80.0-100.0); Potassium - ABG Lab 3.01 mmol/L (3.70-5.30); pH, Arterial 7.45 (7.35-7.45)
[2020-12-10 07:57] LABS: Puncture Site RRA
[2020-12-10] MEDS: Pantoprazole 40 MG VIAL IVP SCH ×2 (09:40→21:13)
[2020-12-10] MEDS: levETIRAcetam in NS 500 MG in Premix Bag 1 BAG IVPB SCH ×2 (09:40→21:12)
[2020-12-10 09:54] LABS: Anisocytosis SLIGHT = 6-15 cells (100X) (0-5/hpf); Band 2 % (5-11); Eosinophils 3 % (0-10); Hypochromia SLIGHT = 6-15 cells (100X) (0-5/hpf); Lymphocytes 6 % (21-51); MDiff Complete? YES; Mean Platelet Volume 9.2 fL (7.4-10.4); Monocytes 5 % (0-10); Neutrophil 84 % (42-75); Nucleated RBC 2 % (0); Platelet Count 163 thou/uL (130-400); Platelet Morphology Comment Appears Adequate; Polychromasia SLIGHT = 2-3 cells (100X) (0-2/hpf); RBC Distribution Width 14.7 % (11.5-14.5); White Blood Cell (WBC) Count 19.9 thou/uL (4.8-10.8)
[2020-12-10] MEDS ORDERED: Morphine 2 MG/ML VIAL SLOW IVP PRN (18:07)
[2020-12-11] MEDS: Cefepime 1 GM in Sodium Chloride 0.9% 100 ML IVPB SCH (00:36)
[2020-12-11 04:38] LABS: Band 26 % (5-11); Hemoglobin 7.7 g/dL (14.0-18.0); Lymphocytes 12 % (21-51); MDiff Complete? YES; Mean Corpuscular HGB CONC 33.3 g/dL (32.0-36.0); Mean Corpuscular Hemoglobin 31.9 pg (27.0-31.0); Mean Corpuscular Volume 95.7 fL (78.0-98.0); Mean Platelet Volume 8.7 fL (7.4-10.4); Monocytes 4 % (0-10); Neutrophil 58 % (42-75); Platelet Count 179 thou/uL (130-400); Platelet Morphology Comment Appears Adequate; RBC Distribution Width 14.3 % (11.5-14.5); Red Blood Cell (RBC) Count 2.41 mill/uL (4.70-6.10); White Blood Cell (WBC) Count 23.8 thou/uL (4.8-10.8)
[2020-12-11 04:46] LABS: Anion Gap 8 mmol/L (10-20); BUN (Urea Nitrogen) 6 mg/dL (8.4-25.7); Calc. Creatinine Clearance 115 mL/min (70-130); Calcium 7.8 mg/dL (7.8-10.44); Carbon Dioxide 33 mmol/L (22-29); Chloride 111 mmol/L (98-107); Glucose 111 mg/dL (70-105); Potassium 3.1 mmol/L (3.5-5.1); Sodium 149 mmol/L (136-145)
[2020-12-11] MEDS: metroNIDAZOLE 500 MG in Premix Bag 1 BAG IVPB SCH (04:49)
[2020-12-11] MEDS: Thiamine HCl 200 MG/2 ML VIAL SLOW IVP SCH (04:49)
[2020-12-11] MEDS ORDERED: Potassium Chloride 40 MEQ in Sodium Chloride 0.9% 250 ML 250 ML IVPB SCH (05:30)
[2020-12-11] MEDS ORDERED: MEROPENEM 1 GM/50 ML 1 GM in Premix Bag 1 BAG IVPB SCH (08:00)
[2020-12-11] MEDS: Dextrose 5% in Water 1,000 ML IV SCH ×2 (08:43→23:04)
[2020-12-11] MEDS: Pantoprazole 40 MG VIAL IVP SCH ×2 (08:43→21:49)
[2020-12-11] MEDS: levETIRAcetam in NS 500 MG in Premix Bag 1 BAG IVPB SCH ×2 (08:59→21:48)
[2020-12-11] MEDS: Potassium Chloride 20 MEQ in Premix Bag 1 BAG IVPB SCH ×2 (09:00→13:52)
[2020-12-11] MEDS: methylPREDNISolone Sod Succ 40 MG VIAL IVP SCH ×2 (13:54→21:48)
[2020-12-11 17:11] LABS: Potassium 3.6 mmol/L (3.5-5.1)
[2020-12-11 18:16] LABS: Hemoglobin 9.3 g/dL (14.0-18.0)
[2020-12-11] MEDS: MEROPENEM 1 GM/50 ML 1 GM in Premix Bag 1 BAG IVPB SCH (18:38)
[2020-12-12] MEDS: MEROPENEM 1 GM/50 ML 1 GM in Premix Bag 1 BAG IVPB SCH ×4 (01:24→23:11)
[2020-12-12 04:00] VITALS: BMI 19.9
[2020-12-12] MEDS: Thiamine HCl 200 MG/2 ML VIAL SLOW IVP SCH (04:14)
[2020-12-12] MEDS: methylPREDNISolone Sod Succ 40 MG VIAL IVP SCH (05:40)
[2020-12-12] MEDS ORDERED: Heparin 1,000 UNITS/ML VIAL ONE (09:01)
[2020-12-12 09:45] LABS: Anion Gap 13 mmol/L (10-20); BUN (Urea Nitrogen) 7 mg/dL (8.4-25.7); Calc. Creatinine Clearance 97 mL/min (70-130); Calcium 7.8 mg/dL (7.8-10.44); Carbon Dioxide 25 mmol/L (22-29); Chloride 104 mmol/L (98-107); Glucose 105 mg/dL (70-105); Potassium 3.5 mmol/L (3.5-5.1); Sodium 138 mmol/L (136-145)
[2020-12-12 09:57] LABS: Hemoglobin 8.4 g/dL (14.0-18.0); Mean Corpuscular HGB CONC 33.3 g/dL (32.0-36.0); Mean Corpuscular Hemoglobin 31.6 pg (27.0-31.0); Mean Corpuscular Volume 94.9 fL (78.0-98.0); Mean Platelet Volume 8.8 fL (7.4-10.4); Platelet Count 267 thou/uL (130-400); RBC Distribution Width 14.5 % (11.5-14.5); Red Blood Cell (RBC) Count 2.67 mill/uL (4.70-6.10); White Blood Cell (WBC) Count 23.4 thou/uL (4.8-10.8)
[2020-12-12 09:58] LABS: Band 7 % (5-11); Large Platelets SLIGHT; Lymphocytes 8 % (21-51); MDiff Complete? YES; Monocytes 2 % (0-10); Neutrophil 83 % (42-75); Nucleated RBC 5 % (0); Platelet Morphology Comment Appears Adequate; Target Cells SLIGHT = 2-5 cells (100X) (0-1/hpf)
[2020-12-12] MEDS: levETIRAcetam in NS 500 MG in Premix Bag 1 BAG IVPB SCH (11:57)
[2020-12-12] MEDS: Dextrose 5% in Water 1,000 ML IV SCH (11:58)
[2020-12-12] MEDS: Pantoprazole 40 MG VIAL IVP SCH ×2 (11:58→20:57)
[2020-12-12] MEDS ORDERED: Lorazepam 2 MG/ML VIAL SLOW IVP PRN (12:01)
[2020-12-12] MEDS ORDERED: Potassium Chloride 40 MEQ in Sodium Chloride 0.9% 250 ML 250 ML IVPB SCH (14:00)
[2020-12-12] MEDS ORDERED: Potassium Chloride 20 MEQ TAB PO SCH (14:00)
[2020-12-12] MEDS: levETIRAcetam 500 MG TAB PO SCH (20:56)
[2020-12-13 04:29] LABS: Anion Gap 11 mmol/L (10-20); BUN (Urea Nitrogen) 6 mg/dL (8.4-25.7); Calc. Creatinine Clearance 90 mL/min (70-130); Calcium 7.8 mg/dL (7.8-10.44); Carbon Dioxide 27 mmol/L (22-29); Chloride 103 mmol/L (98-107); Glucose 95 mg/dL (70-105); Potassium 3.3 mmol/L (3.5-5.1); Sodium 138 mmol/L (136-145)
[2020-12-13 04:51] LABS: Mean Corpuscular HGB CONC 31.4 g/dL (32.0-36.0); Mean Corpuscular Volume 95.8 fL (78.0-98.0); Mean Platelet Volume 8.4 fL (7.4-10.4); Platelet Count 327 thou/uL (130-400); RBC Distribution Width 14.4 % (11.5-14.5); Red Blood Cell (RBC) Count 2.67 mill/uL (4.70-6.10); White Blood Cell (WBC) Count 18.3 thou/uL (4.8-10.8)
[2020-12-13 04:52] LABS: Band 2 % (5-11); Hypochromia SLIGHT = 6-15 cells (100X) (0-5/hpf); Lymphocytes 16 % (21-51); MDiff Complete? YES; Monocytes 10 % (0-10); Neutrophil 72 % (42-75); Nucleated RBC 1 % (0); Platelet Morphology Comment Appears Adequate
[2020-12-13] MEDS ORDERED: Potassium Chloride 20 MEQ TAB PO SCH (06:30)
[2020-12-13] MEDS: Multivitamin W/ Minerals 1 TAB PO SCH (08:15)
[2020-12-13] MEDS: Thiamine 100 MG TAB PO SCH (08:15)
[2020-12-13] MEDS: Pantoprazole 40 MG VIAL IVP SCH ×2 (08:15→19:51)
[2020-12-13] MEDS: levETIRAcetam 500 MG TAB PO SCH ×2 (08:15→19:51)
[2020-12-13] MEDS: MEROPENEM 1 GM/50 ML 1 GM in Premix Bag 1 BAG IVPB SCH ×2 (08:17→15:49)
[2020-12-14] MEDS: MEROPENEM 1 GM/50 ML 1 GM in Premix Bag 1 BAG IVPB SCH ×2 (00:15→08:59)
[2020-12-14 05:56] LABS: Anisocytosis SLIGHT = 6-15 cells (100X) (0-5/hpf); Band 6 % (5-11); Lymphocytes 11 % (21-51); MDiff Complete? YES; Macrocytosis SLIGHT = 6-15 cells (100X) (0-5/hpf); Mean Corpuscular HGB CONC 32.7 g/dL (32.0-36.0); Mean Corpuscular Hemoglobin 31.5 pg (27.0-31.0); Mean Corpuscular Volume 96.3 fL (78.0-98.0); Monocytes 7 % (0-10); Neutrophil 75 % (42-75); Nucleated RBC 5 % (0); Platelet Count 378 thou/uL (130-400); Platelet Morphology Comment Appears Adequate; Polychromasia MODERATE = 3-4 cells (100X) (0-2/hpf); RBC Distribution Width 14.8 % (11.5-14.5); Reactive Lymphocytes 1 % (0-10); Red Blood Cell (RBC) Count 2.23 mill/uL (4.70-6.10); White Blood Cell (WBC) Count 14.4 thou/uL (4.8-10.8)
[2020-12-14 06:04] LABS: Anion Gap 7 mmol/L (10-20); BUN (Urea Nitrogen) 4 mg/dL (8.4-25.7); Calc. Creatinine Clearance 103 mL/min (70-130); Calcium 7.4 mg/dL (7.8-10.44); Carbon Dioxide 28 mmol/L (22-29); Chloride 105 mmol/L (98-107); Glucose 84 mg/dL (70-105); Potassium 3.2 mmol/L (3.5-5.1); Sodium 137 mmol/L (136-145)
[2020-12-14] MEDS ORDERED: Potassium Chloride 20 MEQ TAB PO SCH (06:30)
[2020-12-14] MEDS: Multivitamin W/ Minerals 1 TAB PO SCH (08:47)
[2020-12-14] MEDS: levETIRAcetam 500 MG TAB PO SCH ×2 (08:48→20:40)
[2020-12-14] MEDS: Pantoprazole 40 MG VIAL IVP SCH ×2 (08:48→20:40)
[2020-12-14] MEDS ORDERED: Sodium Chloride 0.9% 500 ML IV SCH (09:00)
[2020-12-14] MEDS: Thiamine 100 MG TAB PO SCH (09:06)
[2020-12-14 11:27] LABS: Potassium 3.7 mmol/L (3.5-5.1)
[2020-12-14] MEDS: AMOXicillin 250 MG CAP PO SCH (20:40)
[2020-12-14] MEDS: Clarithromycin 500 MG TAB PO SCH (20:40)
[2020-12-15] VITALS: BP 102/59; TEMP 98.2
[2020-12-15 07:19] LABS: Hemoglobin 7.6 g/dL (14.0-18.0); Mean Corpuscular HGB CONC 33.1 g/dL (32.0-36.0); Mean Corpuscular Hemoglobin 31.7 pg (27.0-31.0); Mean Platelet Volume 7.6 fL (7.4-10.4); Platelet Count 563 thou/uL (130-400); RBC Distribution Width 15.4 % (11.5-14.5); White Blood Cell (WBC) Count 15.2 thou/uL (4.8-10.8)
[2020-12-15 07:33] LABS: Anion Gap 9 mmol/L (10-20); BUN (Urea Nitrogen) 4 mg/dL (8.4-25.7); Calc. Creatinine Clearance 101 mL/min (70-130); Calcium 7.6 mg/dL (7.8-10.44); Carbon Dioxide 27 mmol/L (22-29); Chloride 107 mmol/L (98-107); Glucose 89 mg/dL (70-105); Potassium 3.6 mmol/L (3.5-5.1); Sodium 139 mmol/L (136-145)
[2020-12-15 08:47] LABS: Anisocytosis MODERATE=16-30 cells (100X) (0-5/hpf); Band 3 % (5-11); Eosinophils 2 % (0-10); Lymphocytes 15 % (21-51); MDiff Complete? YES; Monocytes 2 % (0-10); Neutrophil 78 % (42-75); Platelet Morphology Comment Appears Increased; Polychromasia MARKED = >4 cells (100X) (0-2/hpf)
[2020-12-15] MEDS: Thiamine 100 MG TAB PO SCH (09:13)
[2020-12-15] MEDS: AMOXicillin 250 MG CAP PO SCH (09:13)
[2020-12-15] MEDS: Clarithromycin 500 MG TAB PO SCH (09:13)
[2020-12-15] MEDS: Pantoprazole 40 MG VIAL IVP SCH (09:13)
[2020-12-15] MEDS: Multivitamin W/ Minerals 1 TAB PO SCH (09:13)
[2020-12-15] MEDS: levETIRAcetam 500 MG TAB PO SCH (09:13)
== END 2020-12-15 18:36 | disposition home or self-care (01) | DRG 870 ==
LOC: ERS 22:42 → CCU 12-02 01:27 → 3SE 12-11 16:45 → ONC 12-12 16:42
PROVIDERS: ADMIT Internal Medicine; ATTEND Internal Medicine
PROC: 3E033XZ Introduction of Vasopressor into Peripheral Vein, Percutaneous Approach (ICD-10-PCS; principal; 2020-12-03)
PROC: 5A1955Z Respiratory Ventilation, Greater than 96 Consecutive Hours (ICD-10-PCS; 2020-12-04)
PROC: 0DH67UZ Insertion of Feeding Device into Stomach, Via Natural or Artificial Opening (ICD-10-PCS; 2020-12-04)
PROC: 0DBN8ZZ Excision of Sigmoid Colon, Via Natural or Artificial Opening Endoscopic (ICD-10-PCS; 2020-12-04)
PROC: 5A09357 Assistance with Respiratory Ventilation, Less than 24 Consecutive Hours, Continuous Positive Airway Pressure (ICD-10-PCS; 2020-12-04)
PROC: 0B918ZZ Drainage of Trachea, Via Natural or Artificial Opening Endoscopic (ICD-10-PCS; 2020-12-04)
PROC: 0BH18EZ Insertion of Endotracheal Airway into Trachea, Via Natural or Artificial Opening Endoscopic (ICD-10-PCS; 2020-12-04)
PROC: 30233N1 Transfusion of Nonautologous Red Blood Cells into Peripheral Vein, Percutaneous Approach (ICD-10-PCS; 2020-12-05)
PROC: 8E0ZXY6 Isolation (ICD-10-PCS; 2020-12-12)
DX: A41.9 Sepsis, unspecified organism (principal); J69.0 Pneumonitis due to inhalation of food and vomit; J96.01 Acute respiratory failure with hypoxia; K57.31 Diverticulosis of large intestine without perforation or abscess with bleeding; I47.1 Supraventricular tachycardia; D62 Acute posthemorrhagic anemia; K22.10 Ulcer of esophagus without bleeding; F10.231 Alcohol dependence with withdrawal delirium; E44.0 Moderate protein-calorie malnutrition; E87.0 Hyperosmolality and hypernatremia; Z68.1 Body mass index [BMI] 19.9 or less, adult; Z99.11 Dependence on respirator [ventilator] status; Z20.822 Contact with and (suspected) exposure to COVID-19; R65.20 Severe sepsis without septic shock; R79.89 Other specified abnormal findings of blood chemistry; F17.210 Nicotine dependence, cigarettes, uncomplicated; D12.6 Benign neoplasm of colon, unspecified; K70.10 Alcoholic hepatitis without ascites; K27.9 Peptic ulcer, site unspecified, unspecified as acute or chronic, without hemorrhage or perforation; B96.81 Helicobacter pylori [H. pylori] as the cause of diseases classified elsewhere; G31.2 Degeneration of nervous system due to alcohol; E87.6 Hypokalemia; G40.909 Epilepsy, unspecified, not intractable, without status epilepticus; I10 Essential (primary) hypertension; Z79.82 Long term (current) use of aspirin; Z82.49 Family history of ischemic heart disease and other diseases of the circulatory system; Z91.19 Patient's noncompliance with other medical treatment and regimen
CPT/HCPCS: 36415; 36416; 36430; 36600; 51701; 71045; 78278; 80048; 80053; 80202; 81003; 82553; 82805; 83605; 83735; 84100; 84145; 84484; 85007; 85014; 85018; 85025; 85027; 85049; 85610; 86850; 86900; 86901; 87040; 87070; 87086; 87205; 87324; 87449; 93005; 93010; 93306; 94002; 94003; 94640; 94660; 96365; 96375; 96376; A9604; C9113; J0456; J0692; J0696; J1630; J1644; J1953; J2060; J2185; J2250; J2270; J2704; J2920; J3010; J3370; J3411; J3475; J3480; J3490; J7030; J7050; J7070; J7620; P9016; P9047; U0002; U0003; U0005

== ENCOUNTER 2021-03-21 09:24 | Emergency (ER) | payer SELFPAY ==
[2021-03-21] MEDS ORDERED: Nitroglycerin 2% Ointment 1 INCH/1 GM Packet ONE (11:07)
[2021-03-21 11:20] LABS: Band 9 % (5-11); Hemoglobin 17.8 g/dL (14.0-18.0); Lymphocytes 34 % (21-51); MDiff Complete? YES; Mean Corpuscular HGB CONC 32.5 g/dL (32.0-36.0); Mean Corpuscular Hemoglobin 28.8 pg (27.0-31.0); Mean Corpuscular Volume 88.6 fL (78.0-98.0); Mean Platelet Volume 6.9 fL (7.4-10.4); Monocytes 2 % (0-10); Neutrophil 52 % (42-75); Platelet Count 378 thou/uL (130-400); RBC Morphology Normal; Reactive Lymphocytes 3 % (0-10); White Blood Cell (WBC) Count 11.2 thou/uL (4.8-10.8)
[2021-03-21 11:50] LABS: ALT (SGPT) 8 U/L (8-55); AST (SGOT) 20 U/L (5-34); Albumin 3.5 g/dL (3.5-5.0); Alkaline Phosphatase 136 U/L (40-110); Anion Gap 15 mmol/L (10-20); BUN (Urea Nitrogen) 5 mg/dL (8.4-25.7); Bilirubin, Total 0.4 mg/dL (0.2-1.2); Calc. Creatinine Clearance 0 mL/min (70-130); Calcium 9.4 mg/dL (7.8-10.44); Carbon Dioxide 21 mmol/L (22-29); Chloride 100 mmol/L (98-107); Glucose 136 mg/dL (70-105); Potassium 4.3 mmol/L (3.5-5.1); Protein, Total 8.5 g/dL (6.0-8.3); Sodium 132 mmol/L (136-145)
[2021-03-21] MEDS ORDERED: Ondansetron PF 4 MG/2 ML Vial ONE (13:10)
[2021-03-21] MEDS ORDERED: Morphine 4 MG/ML VIAL ONE (13:10)
== END 2021-03-21 15:16 | disposition home or self-care (01) ==
LOC: ERS 09:24
DX: R07.89 Other chest pain (principal); K22.89 Other specified disease of esophagus; K44.9 Diaphragmatic hernia without obstruction or gangrene; F17.290 Nicotine dependence, other tobacco product, uncomplicated
CPT/HCPCS: 36415; 71045; 71275; 74174; 80053; 84484; 85025; 85379; 93005; 96374; 96375; J2270; J2405

== ENCOUNTER 2021-03-28 11:22 | Emergency (ER) | payer SELFPAY ==
[2021-03-28 13:48] LABS: Bilirubin Negative (Negative); Blood, Urine Negative (Negative); Clarity Clear (Clear); Glucose, Urine (Dipstick) Normal (Negative); Ketone, Urine Negative (Negative); Leukocyte Negative Leu/uL (Negative); Nitrite Negative (Negative); Protein, Urine (Dipstick) Negative (Neg-Trace); Specific Gravity, Urine 1.015 (1.002-1.036); Urobilinogen Normal mg/dL (Less than 2)
[2021-03-28] MEDS ORDERED: Famotidine 20 MG TAB ONE (14:47)
[2021-03-28 15:06] LABS: INR-International Normal Ratio 1.1; PTT 35.5 sec (22.9-36.1); Prothrombin Time 14.2 sec (12.0-14.7)
[2021-03-28 15:07] LABS: Hemoglobin 16.4 g/dL (14.0-18.0); Mean Corpuscular HGB CONC 30.7 g/dL (32.0-36.0); Mean Corpuscular Hemoglobin 27.7 pg (27.0-31.0); Mean Corpuscular Volume 90.3 fL (78.0-98.0); Mean Platelet Volume 6.8 fL (7.4-10.4); Platelet Count 510 thou/uL (130-400); RBC Distribution Width 15.6 % (11.5-14.5); Red Blood Cell (RBC) Count 5.91 mill/uL (4.70-6.10); White Blood Cell (WBC) Count 7.5 thou/uL (4.8-10.8)
[2021-03-28 15:17] LABS: ALT (SGPT) 9 U/L (8-55); AST (SGOT) 19 U/L (5-34); Albumin 3.6 g/dL (3.5-5.0); Alkaline Phosphatase 119 U/L (40-110); Anion Gap 15 mmol/L (10-20); BUN (Urea Nitrogen) 5 mg/dL (8.4-25.7); Bilirubin, Total 0.5 mg/dL (0.2-1.2); Calc. Creatinine Clearance 0 mL/min (70-130); Calcium 9.3 mg/dL (7.8-10.44); Carbon Dioxide 24 mmol/L (22-29); Chloride 101 mmol/L (98-107); Globulin 4.5 g/dL (2.4-3.5); Glucose 78 mg/dL (70-105); Potassium 3.6 mmol/L (3.5-5.1); Protein, Total 8.1 g/dL (6.0-8.3); Sodium 136 mmol/L (136-145)
[2021-03-28 15:23] LABS: Anisocytosis SLIGHT = 6-15 cells (100X) (0-5/hpf); Eosinophils 3 % (0-10); Hypochromia SLIGHT = 6-15 cells (100X) (0-5/hpf); Lymphocytes 46 % (21-51); MDiff Complete? YES; Monocytes 11 % (0-10); Neutrophil 39 % (42-75); Platelet Morphology Comment Appears Increased; Polychromasia SLIGHT = 2-3 cells (100X) (0-2/hpf); Target Cells SLIGHT = 2-5 cells (100X) (0-1/hpf)
[2021-03-28] MEDS ORDERED: Ketorolac Tromethamine 30 MG/ML VIAL ONE (15:51)
== END 2021-03-28 16:08 | disposition home or self-care (01) ==
LOC: ERS 11:22
DX: M79.602 Pain in left arm (principal); K29.70 Gastritis, unspecified, without bleeding; F17.290 Nicotine dependence, other tobacco product, uncomplicated
CPT/HCPCS: 36415; 71045; 80053; 81003; 82550; 83605; 83880; 84484; 85025; 85379; 85610; 85730; 87040; 87086; 93005; 94760; 96374; J1885

== ENCOUNTER 2023-09-19 10:18 | Emergency (ER) | payer OTHER, SELFPAY ==
[2023-09-19] MEDS ORDERED: Aspirin Chewable 81 MG TAB ONE (10:44)
[2023-09-19 10:47] LABS: #Basophils 0.03 10x3/uL (0.0-0.2); #Eosinphils Less than 0.03 10x3/uL (0.0-0.7); %Basophils 0.4 % (0.0-1.0); %Eosinophils 0.3 % (0.0-10.0); %Lymphocytes 14.3 % (21.0-51.0); %Monocytes 13.8 % (0.0-10.0); %Neutrophils 70.8 % (42.0-75.0); Hematocrit 41.8 % (42.0-52.0); Mean Corpuscular HGB CONC 35.9 g/dL (32.0-36.0); Mean Corpuscular Hemoglobin 31.7 pg (27.0-31.0); Mean Corpuscular Volume 88.4 fL (78.0-98.0); Mean Platelet Volume 10.2 fL (7.4-10.4); Platelet Count 167 10x3/uL (130-400); RBC Distribution Width 13.5 % (11.5-14.5); Red Blood Cell (RBC) Count 4.73 mill/uL (4.70-6.10)
[2023-09-19 11:01] LABS: ALT (SGPT) 57 U/L (8-55); AST (SGOT) 113 U/L (5-34); Albumin 3.3 g/dL (3.4-4.8); Alkaline Phosphatase 70 U/L (40-110); Anion Gap 19 mmol/L (10-20); BUN (Urea Nitrogen) 13 mg/dL (8.4-25.7); Bilirubin, Total 1.6 mg/dL (0.2-1.2); Calc. Creatinine Clearance 0 mL/min (70-130); Calcium 8.8 mg/dL (7.8-10.44); Carbon Dioxide 31 mmol/L (23-31); Chloride 81 mmol/L (98-107); Estimated GFR 99; Globulin 3.7 g/dL (2.4-3.5); Glucose 85 mg/dL (80-115); Lipase 95 U/L (8-78); Potassium 2.9 mmol/L (3.5-5.1); Sodium 128 mmol/L (136-145)
[2023-09-19 11:08] LABS: Troponin I Less than 0.010 ng/mL (< 0.028)
[2023-09-19 12:52] LABS: Troponin I Less than 0.010 ng/mL (< 0.028)
== END 2023-09-19 14:30 | disposition home or self-care (01) ==
LOC: ERS 10:18
DX: R55 Syncope and collapse (principal); R11.2 Nausea with vomiting, unspecified; R19.7 Diarrhea, unspecified; I10 Essential (primary) hypertension; J44.9 Chronic obstructive pulmonary disease, unspecified; F17.290 Nicotine dependence, other tobacco product, uncomplicated
CPT/HCPCS: 36416; 70450; 71045; 80053; 80307; 83690; 83880; 84484; 85025; 93005; 96360; 96361

== ENCOUNTER 2025-01-01 10:48 | Inpatient (IN) | payer OTHER, SELFPAY ==
[2025-01-01] MEDS ORDERED: hydrALAZINE 20 MG/ML VIAL ONE (11:17)
[2025-01-01 11:35] LABS: #Basophils 0.07 10x3/uL (0.0-0.2); #Eosinophils 0.03 10x3/uL (0.0-0.7); #Monocytes 0.55 10x3/uL (0.11-0.59); #Neutrophils 1.96 10x3/uL (1.40-6.50); %Basophils 1.6 % (0.0-1.0); %Eosinophils 0.7 % (0.0-10.0); %Lymphocytes 38.9 % (21.0-51.0); %Monocytes 12.8 % (0.0-10.0); %Neutrophils 45.8 % (42.0-75.0); Hematocrit 44.6 % (42.0-52.0); Hemoglobin 14.9 g/dL (14.0-18.0); Mean Corpuscular Hemoglobin 28.8 pg (27.0-31.0); Mean Corpuscular Volume 86.3 fL (78.0-98.0); Platelet Count 290 10x3/uL (130-400); Red Blood Cell (RBC) Count 5.17 mill/uL (4.70-6.10); White Blood Cell (WBC) Count 4.29 10x3/uL (4.8-10.8)
[2025-01-01 13:01] LABS: ALT (SGPT) 70 U/L (Less than 45); AST (SGOT) 160 U/L (11-34); Albumin 3.7 g/dL (3.1-4.5); Alkaline Phosphatase 76 U/L (40-110); Anion Gap 22 mmol/L (10-20); BUN (Urea Nitrogen) 5 mg/dL (8.4-25.7); Bilirubin, Total 0.6 mg/dL (0.3-1.2); Calc. Creatinine Clearance 0 mL/min (70-130); Calcium 9.3 mg/dL (7.8-10.44); Carbon Dioxide 18 mmol/L (23-31); Chloride 101 mmol/L (98-107); Globulin 4.4 g/dL (2.4-3.5); Glucose 90 mg/dL (80-115); Potassium 3.5 mmol/L (3.5-5.1); Sodium 137 mmol/L (136-145)
[2025-01-01] MEDS ORDERED: Ondansetron PF 4 MG/2 ML Vial ONE (13:14)
[2025-01-01] MEDS ORDERED: Melatonin 3 MG TAB PO PRN (13:53)
[2025-01-01] MEDS ORDERED: Guaifenesin DM 100-10/5 ML UDCUP PO PRN (13:53)
[2025-01-01] MEDS ORDERED: Senokot S 8.6-50 MG TAB PO PRN (13:53)
[2025-01-01] MEDS ORDERED: Acetaminophen 325 MG TAB PO PRN (13:53)
[2025-01-01] MEDS ORDERED: Electrolyte Replacement Protocol 1 EACH FS SCH ×2 (14:00→14:15)
[2025-01-01 15:35] VITALS: BMI 22.1
[2025-01-01 17:09] LABS: #Basophils 0.08 10x3/uL (0.0-0.2); #Eosinophils 0.06 10x3/uL (0.0-0.7); #Monocytes 0.73 10x3/uL (0.11-0.59); #Neutrophils 4.62 10x3/uL (1.40-6.50); %Basophils 1.2 % (0.0-1.0); %Eosinophils 0.9 % (0.0-10.0); %Lymphocytes 19.3 % (21.0-51.0); %Monocytes 10.7 % (0.0-10.0); %Neutrophils 67.5 % (42.0-75.0); Hematocrit 43.9 % (42.0-52.0); Hemoglobin 14.8 g/dL (14.0-18.0); Mean Corpuscular Hemoglobin 29.2 pg (27.0-31.0); Mean Corpuscular Volume 86.6 fL (78.0-98.0); Platelet Count 239 10x3/uL (130-400); Red Blood Cell (RBC) Count 5.07 mill/uL (4.70-6.10); White Blood Cell (WBC) Count 6.84 10x3/uL (4.8-10.8)
[2025-01-01 17:29] LABS: ALT (SGPT) 62 U/L (Less than 45); AST (SGOT) 116 U/L (11-34); Albumin 3.6 g/dL (3.1-4.5); Alkaline Phosphatase 70 U/L (40-110); Anion Gap 17 mmol/L (10-20); BUN (Urea Nitrogen) Less than 4 mg/dL (8.4-25.7); Bilirubin, Total 0.6 mg/dL (0.3-1.2); Calc. Creatinine Clearance 82 mL/min (70-130); Calcium 9.4 mg/dL (7.8-10.44); Carbon Dioxide 21 mmol/L (23-31); Chloride 100 mmol/L (98-107); Globulin 4.1 g/dL (2.4-3.5); Glucose 96 mg/dL (80-115); Magnesium 1.7 mg/dL (1.6-2.6); Potassium 3.8 mmol/L (3.5-5.1); Sodium 134 mmol/L (136-145)
[2025-01-01 17:31] LABS: Bilirubin, Direct 0.3 mg/dL (0.1-0.3); Lipase 17 U/L (8-78); Magnesium 1.7 mg/dL (1.6-2.6)
[2025-01-01 17:51] LABS: Thyroid Stimulating Hormone 0.9795 uIU/mL (0.35-4.94)
[2025-01-01] MEDS: Magnesium 2 GM/50 ML(in water) 2 GM in Premix 1 BAG IVPB SCH (18:12)
[2025-01-01 18:36] LABS: Hep A IgM AB NONREACTIVE (NonReactive); Hep A IgM S/CO 0.14 S/CO (0-0.79); Hep B Core IgM Index 0.08 S/CO (0-0.79); Hep B Surf Ag NONREACTIVE S/CO (NonReactive); Hep C IgG Ab NONREACTIVE S/CO (NonReactive); Hep C Index 0.07 S/CO (0-0.79)
[2025-01-01] MEDS: Famotidine/PF 20 mg/2ml Vial SLOW IVP SCH (21:30)
[2025-01-01 21:40] LABS: Potassium 4.2 mmol/L (3.5-5.1)
[2025-01-02 05:22] LABS: Glucose, Urine (Dipstick) Negative (Negative); Leukocyte Negative (Negative); Protein, Urine (Dipstick) Negative (Neg-Trace); Specific Gravity, Urine 1.010 (1.005-1.030)
[2025-01-02 05:41] LABS: Bacteria/HPF None Seen HPF (None Seen); RBC/HPF 0-3 HPF (0-3); WBC/HPF 0-3 HPF (0-3)
[2025-01-02 05:49] LABS: Cocaine Metabolite Screen Negative (Negative); THC/Cannabinoid Screen PRELIM POSITIVE (Negative); Tricyclic Screen Negative (Negative)
[2025-01-02 05:52] LABS: #Basophils 0.08 10x3/uL (0.0-0.2); #Eosinophils 0.07 10x3/uL (0.0-0.7); #Monocytes 0.92 10x3/uL (0.11-0.59); #Neutrophils 4.07 10x3/uL (1.40-6.50); %Basophils 1.1 % (0.0-1.0); %Eosinophils 1.0 % (0.0-10.0); %Lymphocytes 27.4 % (21.0-51.0); %Monocytes 12.9 % (0.0-10.0); %Neutrophils 57.2 % (42.0-75.0); Hematocrit 39.6 % (42.0-52.0); Hemoglobin 13.3 g/dL (14.0-18.0); Mean Corpuscular Hemoglobin 28.9 pg (27.0-31.0); Mean Corpuscular Volume 85.9 fL (78.0-98.0); Platelet Count 253 10x3/uL (130-400); Red Blood Cell (RBC) Count 4.61 mill/uL (4.70-6.10); White Blood Cell (WBC) Count 7.12 10x3/uL (4.8-10.8)
[2025-01-02 06:09] LABS: ALT (SGPT) 50 U/L (Less than 45); AST (SGOT) 88 U/L (11-34); Albumin 3.2 g/dL (3.1-4.5); Alkaline Phosphatase 63 U/L (40-110); Anion Gap 12 mmol/L (10-20); BUN (Urea Nitrogen) 5 mg/dL (8.4-25.7); Bilirubin, Total 0.9 mg/dL (0.3-1.2); Calc. Creatinine Clearance 94 mL/min (70-130); Calcium 9.0 mg/dL (7.8-10.44); Carbon Dioxide 22 mmol/L (23-31); Chloride 101 mmol/L (98-107); Globulin 3.6 g/dL (2.4-3.5); Glucose 83 mg/dL (80-115); Potassium 3.7 mmol/L (3.5-5.1); Sodium 131 mmol/L (136-145)
[2025-01-02] MEDS: Multivit, Therapeutic 1 TAB PO SCH (08:07)
[2025-01-02] MEDS: Folic Acid 1 MG TAB PO SCH (08:07)
[2025-01-02] MEDS: Acetaminophen/Codeine 30-300mg Tablet PO PRN (08:08)
[2025-01-03 04:51] LABS: Hematocrit 42.3 % (42.0-52.0); Hemoglobin 14.6 g/dL (14.0-18.0); Mean Corpuscular Hemoglobin 29.4 pg (27.0-31.0); Mean Corpuscular Volume 85.3 fL (78.0-98.0); Platelet Count 260 10x3/uL (130-400); Red Blood Cell (RBC) Count 4.96 mill/uL (4.70-6.10); White Blood Cell (WBC) Count 5.83 10x3/uL (4.8-10.8)
[2025-01-03 05:08] LABS: ALT (SGPT) 49 U/L (Less than 45); AST (SGOT) 75 U/L (11-34); Albumin 3.5 g/dL (3.1-4.5); Alkaline Phosphatase 70 U/L (40-110); Anion Gap 15 mmol/L (10-20); BUN (Urea Nitrogen) 7 mg/dL (8.4-25.7); Bilirubin, Total 0.8 mg/dL (0.3-1.2); Calc. Creatinine Clearance 82 mL/min (70-130); Calcium 9.4 mg/dL (7.8-10.44); Carbon Dioxide 24 mmol/L (23-31); Chloride 99 mmol/L (98-107); Globulin 3.9 g/dL (2.4-3.5); Glucose 84 mg/dL (80-115); Magnesium 1.8 mg/dL (1.6-2.6); Potassium 3.8 mmol/L (3.5-5.1); Sodium 134 mmol/L (136-145)
[2025-01-03] MEDS: Magnesium 2 GM/50 ML(in water) 2 GM in Premix 1 BAG IVPB SCH (08:51)
[2025-01-03 12:23] VITALS: TEMP 98
[2025-01-03 12:51] VITALS: BP 164/82
[2025-01-04] MEDS ORDERED: Thiamine 100 MG TAB PO SCH (09:00)
[2025-01-04] MEDS ORDERED: FLU (Fluarix Triv) 25-26 (6MOS UP)/PF 45 MCG/0.5 ML Syringe IM ONE (16:15)
== END 2025-01-03 13:40 | disposition left against medical advice (07) | DRG 309 ==
LOC: ERS 10:48 → OBS 13:53 → OBSVTOIN 01-02 08:52
PROVIDERS: ADMIT Internal Medicine; ATTEND Internal Medicine
DX: I47.10 Supraventricular tachycardia, unspecified (principal); E87.1 Hypo-osmolality and hyponatremia; I10 Essential (primary) hypertension; K76.89 Other specified diseases of liver; J44.9 Chronic obstructive pulmonary disease, unspecified; F10.90 Alcohol use, unspecified, uncomplicated; F17.210 Nicotine dependence, cigarettes, uncomplicated; F12.90 Cannabis use, unspecified, uncomplicated; E83.42 Hypomagnesemia; E87.6 Hypokalemia; G62.9 Polyneuropathy, unspecified; Z91.148 Patient's other noncompliance with medication regimen for other reason
CPT/HCPCS: 36415; 71045; 76700; 80053; 80074; 80306; 81001; 82248; 83690; 83735; 83880; 84100; 84443; 84484; 85025; 85027; 93005; 93306; 93925; 96374; 96375; G0378; J0360; J1308; J2270; J2405; J2550; J3411; J3475; J7120